=== PATIENT | male | born 1995 | race Hispanic/Latino ===

== ENCOUNTER 2020-08-30 04:13 | Emergency (ER) | payer OTHER ==
[~2020-08-30] VITALS: Ht 175.3 cm; Wt 72.6 kg
[2020-08-30] MEDS ORDERED: IBUPROFEN 600 MG TAB PO STA (04:34)
[2020-08-30] MEDS ORDERED: IBUPROFEN 600 MG TAB ONE (04:46)
== END 2020-08-30 05:45 | disposition home or self-care (01) ==
LOC: FSED 04:28
DX: S93.402A Sprain of unspecified ligament of left ankle, initial encounter (principal); X50.1XXA Overexertion from prolonged static or awkward postures, initial encounter; Y93.01 Activity, walking, marching and hiking; Y92.008 Other place in unspecified non-institutional (private) residence as the place of occurrence of the external cause; F17.210 Nicotine dependence, cigarettes, uncomplicated
CPT/HCPCS: 99283